=== PATIENT | male | born 1950 | race Caucasian/White ===

== ENCOUNTER 2020-06-17 07:22 | Day surgery (SDC) | payer OTHER ==
[2020-06-17] VITALS (8 sets, daily range): BP systolic 89–108; BP diastolic 51–78
[~2020-06-17] VITALS: Ht 180.3 cm; Wt 86.4 kg
[~2020-06-17 07:22] MED LIST: LISI-613 PO; METO-408 PO; SIMV-43 PO; SODIUM CHLORIDE 0.9% 1000ML 1,000 ML IV ONE
[2020-06-17] MEDS ORDERED: PROPOFOL 10 MG/ML 20ML VIAL IV ONE (09:40)
[2020-06-17] MEDS ORDERED: MIDAZOLAM HCL 1 MG/ML 2ML VIAL ONE (09:40)
--- NOTE | 2020-06-17 10:50 | NUR ---
I HAD SPOKE TO FRIEND WIL HEBER AT [phone], ADVISED HIM THAT PATIENT WOULD BE READY FOR AGRONOMY RESEARCH MANAGER AT 1030, WIL RESPONDED AND SAID HE WOULD BE HERE IN 15-20 MINUTES, PATIENT ADVISED ME HIS FAMILY WAS HERE WITH HIM WHEN COLLIN MYERS TOOK PATIENT OUT THROUGH ER PATIENT RAN OFF AND TOOK OFF IN HIS TRUCK WHEN HE WAS TOLD PERIOPERATIVELY HE COULD NOT DRIVE , REPORTED SITUATION TO WIRELESS TEAM MEMBER ROBERTO AND TO NURSE CLINICAL RESEARCH ADMINISTRATOR KEHINDE CONWAY RN. I ATTEMPTED TO CALL FRIEND X3 AND NO ANSWER.
== END 2020-06-17 10:50 | disposition home or self-care (01) ==
LOC: DAH 07:22 → ENDO 07:22
PROVIDERS: ATTEND Internal Medicine Gastroenterology
DX: R19.5 Other fecal abnormalities (principal); K57.30 Diverticulosis of large intestine without perforation or abscess without bleeding; I10 Essential (primary) hypertension; E78.5 Hyperlipidemia, unspecified; R19.04 Left lower quadrant abdominal swelling, mass and lump; I48.20 Chronic atrial fibrillation, unspecified; M19.90 Unspecified osteoarthritis, unspecified site; Z98.890 Other specified postprocedural states; Z79.899 Other long term (current) drug therapy; Z20.828 Contact with and (suspected) exposure to other viral communicable diseases
CPT/HCPCS: 36415; 45378; 93005; A4215; A4221; A4222; A4223; A4606; A4620; A4657; A4663; C9803; J2250; J2704; J7030; U0003

== ENCOUNTER → 2020-08-19 | Outpatient (CLI) | payer OTHER ==
[~2020-08-19] MED LIST changes: -SODIUM CHLORIDE 0.9% 1000ML 1,000 ML IV ONE
== END | disposition home or self-care (01) ==
LOC: RAH 08:00
PROVIDERS: ATTEND Internal Medicine Critical Care Medicine
DX: Z13.6 Encounter for screening for cardiovascular disorders (principal)
CPT/HCPCS: 75571

== ENCOUNTER → 2025-03-28 | Outpatient (CLI) | payer OTHER ==
[~2025-03-28] MED LIST changes: +AMIO200T73 PO; +APIX5TAB PO; +FURO20TA6 PO; +IOHEXOL 350 MG/ML 100ML INFUS..BTL IV ONE; -LISI-613 PO; -METO-408 PO; +METO-409 PO; +SACU1TAB PO; +SPIR25TA6 PO
--- NOTE | 2025-03-29 00:14 | HMCIMG ---
EXAM: CTA Chest with Intravenous Contrast for Aortic Dissection CLINICAL HISTORY: Persistent atrial fibrillation TECHNIQUE: Axial CTA images of the chest with intravenous contrast using an aortic dissection protocol. MIP reconstructed images were created and reviewed. CONTRAST: was administered without incident. COMPARISON: Compared with previous CT dated 02/25 and radiograph dated 03/02. FINDINGS: AORTA There is no evidence for aneurysm or dissection of the thoracic aorta. PULMONARY ARTERIES The examination is optimized for assessment of the aorta, rather than the pulmonary arteries. No obvious evidence of central or segmental pulmonary embolism is seen. LUNGS Extensive centriacinar emphysematous changes in both lungs. Subtle ground-glass and reticular opacities in posterior basal segments of bilateral lower lobes. No mass or focal consolidation. PLEURAL SPACES No evidence of pneumothorax. Resolution of previously seen moderate right and mild left pleural effusion. HEART No cardiomegaly. No significant pericardial effusion. Small amount of fluid within the superior pericardial recess. Moderate coronary artery calcification. LYMPH NODES There are shotty mediastinal lymph nodes. BONES No focal osseous abnormality or acute fracture. Degenerative changes in the visualized spine. UPPER ABDOMEN Multiple simple cortical cysts in both kidneys largest measuring 4.7 x 6.0 cm at upper pole of left kidney. There are multiple (more than 5) subcentimeter hypoattenuating hepatic structures too small to characterize with Hounsfield units but statistically most consistent with simple cysts. Colonic diverticulosis with no features of acute diverticulitis. IMPRESSION: 1. No evidence of aortic aneurysm or dissection. 2. Resolution of previously seen bilateral pleural effusions. 3. Extensive centriacinar emphysematous changes in both lungs with subtle ground-glass and reticular opacities in posterior basal segments of bilateral lower lobes. /[place]
== END | disposition home or self-care (01) ==
LOC: RAH 08:59
PROVIDERS: ATTEND Internal Medicine Cardiovascular Disease
DX: J43.2 Centrilobular emphysema (principal); J98.4 Other disorders of lung; I48.19 Other persistent atrial fibrillation; I25.10 Atherosclerotic heart disease of native coronary artery without angina pectoris; M47.814 Spondylosis without myelopathy or radiculopathy, thoracic region; N28.1 Cyst of kidney, acquired; K57.30 Diverticulosis of large intestine without perforation or abscess without bleeding
CPT/HCPCS: 71275; Q9967

== ENCOUNTER → 2025-05-06 | Outpatient (CLI) | payer OTHER ==
[~2025-05-06] MED LIST changes: -IOHEXOL 350 MG/ML 100ML INFUS..BTL IV ONE
[2025-05-06] MEDS: REGADENOSON 0.4 MG/5 ML PF SYG IVP ONE (13:07)
== END | disposition home or self-care (01) ==
LOC: RAH 10:47
PROVIDERS: ATTEND Student in an Organized Health Care Education/Training Program
DX: I50.22 Chronic systolic (congestive) heart failure (principal)
CPT/HCPCS: 78452; 93017; J2785; A9500 ×2

== ENCOUNTER 2025-05-21 05:55 | Day surgery (SDC) | payer OTHER ==
[2025-05-17 11:48] LABS: IMMATURE GRANULOCYTE ABSOLUTE 0.06 K/uL (0-1); NUCLEATED RED BLOOD CELLS 0.0 % (0.0-0.19); PLATELET COUNT (AUTO) 242 K/uL (130-400); RED BLOOD CELL COUNT(AUTO) 5.19 MIL/uL (4.50-6.20); RED CELL DISTRIBUTION WIDTH 16.5 % (11.0-15.5); WHITE BLOOD COUNT (AUTO) 7.6 K/uL (4.8-10.8)
[2025-05-17 11:51] VITALS: BP 103/68; PULSE 103; RESP 17; TEMP 97.9
[2025-05-17 12:02] LABS: CREATININE 1.1 mg/dL (0.5-1.3); GLOMERULAR FILTR. RATE CALC 69.0 mL/min (>90); GLUCOSE,RANDOM 91.0 mg/dL (70-105); SODIUM SERUM 144.0 mmol/L (136-145); UREA NITROGEN, BLOOD 34.0 mg/dL (7-18)
[2025-05-17 12:13] LABS: INR 1.14 (0.85-1.15)
--- NOTE | 2025-05-17 15:15 | EKG ---
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 : 1950 Requested By: KENNETH NEVAREZ Order Number: [id number] Reading MD: Edmar Jacobo Measurements Intervals [place] Rate: 83 P: 0 NE: 0 QRS: 22 QRSD: 125 T: 20 QT: 433 QTc: 522 Interpretive Statements Atrial fibrillation Nonspecific intraventricular conduction delay Probable anteroseptal infarct, old Compared to ECG 03/03/2025 13:40:49 Intraventricular conduction delay now present Left-axis deviation no longer present Prolonged QT interval no longer present Myocardial infarct finding still present Electronically Signed On 05-17-2025 18:30:52 CDT by Edmar Jacobo Please click the below link to view image of tracing.
[2025-05-21] VITALS (18 sets, daily range): BP systolic 91–113; BP diastolic 53–86; PULSE 52–73; RESP 11–17; TEMP 97.1–97.7
[~2025-05-21] VITALS: Ht 180.3 cm; Wt 79.2 kg
[~2025-05-21 05:55] MED LIST changes: +FURO20TA4 PO; -FURO20TA6 PO; +METO-391 PO; +ROSU10TA98 PO; -SIMV-43 PO
[2025-05-21] MEDS ORDERED: ETOMIDATE 20MG VIAL ONE (07:03)
[2025-05-21] MEDS ORDERED: FAMOTIDINE 20MG VIAL IV ONE (07:05)
[2025-05-21] MEDS ORDERED: SUGAMMADEX SODIUM 200 MG/2 ML VIAL IV ONE (07:05)
[2025-05-21] MEDS ORDERED: LIDOCAINE PF 100MG/5ML (2%) SYRINGE 5ML ONE (07:09)
[2025-05-21] MEDS ORDERED: SODIUM BICARB 50MEQ 50ML VIAL 50 ML ONE (07:41)
[2025-05-21] MEDS ORDERED: LIDOCAINE HCL 400MG/20ML VIAL ONE (07:41)
[2025-05-21] MEDS ORDERED: HEParin-NS 1,000 UNIT/500 ML 500 ML IV ONE ×2 (07:42)
[2025-05-21 08:28] LABS: ABG BASE EXCESS -3.2 mmol/L (-2.0-3.0); ABG HCO3 22.8 mmol/L (21.0-28.0); ABG OXYGEN SATURATION 99.6 % (94.0-98.0); ABG PCO2 44 mmHg (35-48); ABG PH 7.328 (7.350-7.450); CARBON MONOXIDE 0.6 % (0.5-1.5); DEVICE COMMENT ALINE, CRNA RAU; PO2, ARTERIAL BG 298.6 mmHg (83.0-108.0); TEMPERATURE, CELSIUS BG 37.0 CELSIUS (35.5-37.0); VENT MODE, BG VENT (ROOM AIR)
[2025-05-21] MEDS ORDERED: GLYCOPYRROLATE 0.2 MG/ML 5 ML VIAL ONE (14:25)
[2025-05-21] MEDS ORDERED: SUCR1TAB2 PO (15:04)
[2025-05-21] MEDS ORDERED: PANT40TA55 PO (15:04)
--- NOTE | 2025-05-22 06:20 | EKG ---
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
--- NOTE | 2025-05-22 06:53 | HMCIMG ---
EXAM: CR Chest, 1 View. CLINICAL HISTORY: CHF COMPARISON: CT angio chest dated 03/28/2025 and CR chest dated 03/02/2025 FINDINGS: LUNGS: Mild, stable prominence of central pulmonary vasculature. Mild bibasilar opacities likely reflect atelectasis. Mild bilateral COPD changes. The rest of the lungs are clear. PLEURAL SPACES: No pleural effusion or pneumothorax. MEDIASTINUM: The cardiac size is stable. BONES: No aggressive appearing osseous lesion seen. IMPRESSION: 1. No pulmonary infiltrates or pleural effusions. 2. Mild bibasilar opacities, likely atelectasis. 3. Mild stable, bilateral COPD changes. 4. Mild prominence of central pulmonary vasculature, stable. /[place]
== END 2025-05-21 18:38 | disposition home or self-care (01) ==
LOC: DAH 05:55
PROVIDERS: ATTEND Internal Medicine Cardiovascular Disease
DX: I48.19 Other persistent atrial fibrillation (principal); I51.7 Cardiomegaly; I50.9 Heart failure, unspecified; Z79.899 Other long term (current) drug therapy; Z98.890 Other specified postprocedural states
CPT/HCPCS: 80048; 85025; 85610; 85730; 36415; 93005 ×2; 93656; 82947; 93655 ×2; 93657 ×2; 82435; 84132; 84295; 82803; 85347 ×9; 85018; 83605; 71045; A4344; C1894 ×3; A4649 ×2; C1760 ×3; C1766; J1308; J3010; J3490 ×6; J2003; J2720; J1644 ×4; J2704; J2405; J2371 ×2; A4215; A4222; A4221; A4663; A4216; A4606; C1732 ×4; A4223 ×3